=== PATIENT | male | born 1950 | race Caucasian/White ===

== ENCOUNTER → 2016-05-15 | Outpatient (CLI) | payer MEDICARE, OTHER ==
[~2016-05-15] MED LIST: PRISTIQ50 MG PO; RAMIPRIL5 MG PO; ZOLPIDEM TART10 MG PO
== END ==
LOC: LAB 07:59
DX: G47.30 Sleep apnea, unspecified (principal); G47.33 Obstructive sleep apnea (adult) (pediatric); Z98.890 Other specified postprocedural states; Z00.00 Encounter for general adult medical examination without abnormal findings; E78.4 Other hyperlipidemia; Z12.5 Encounter for screening for malignant neoplasm of prostate

== ENCOUNTER 2016-05-29 10:53 | Emergency (ER) | payer MEDICARE, OTHER | END 2016-05-29 11:34 | disposition home or self-care (01) | LOC: ED 10:53 | DX: S61.411A Laceration without foreign body of right hand, initial encounter (principal); W31.89XA Contact with other specified machinery, initial encounter; Y92.018 Other place in single-family (private) house as the place of occurrence of the external cause | CPT/HCPCS: 90715; A4550 ==

== ENCOUNTER → 2017-09-17 | Outpatient (CLI) | payer MEDICARE, OTHER ==
[2016-05-29 11:47] VITALS: BP 151/96
[2017-09-17 08:36] LABS: HEMOGLOBIN 15.6 g/dL (13.5-18.0); MEAN PLATELET VOLUME 9.1 fl (7.4-10.4); RED BLOOD COUNT 4.88 M/mm3 (4.20-5.60); WHITE BLOOD COUNT 6.7 K/mm3 (4.8-10.8)
[2017-09-17 08:54] LABS: ALBUMIN 3.8 g/dL (3.5-5.0); BUN/CREATININE RATIO 20.5 (6.0-26.0); CALCIUM 9.2 mg/dL (8.4-10.2); POTASSIUM 4.8 mmol/L (3.6-5.0); TOTAL BILIRUBIN 0.7 mg/dL (0.2-1.3)
== END ==
LOC: LAB 07:55
PROVIDERS: Emergency Medicine
DX: Z12.5 Encounter for screening for malignant neoplasm of prostate (principal); R53.83 Other fatigue

== ENCOUNTER → 2019-01-23 | Outpatient (CLI) | payer MEDICARE, OTHER ==
[2016-05-29 11:47] VITALS: BP 151/96
[2019-01-23 08:52] LABS: BASO # 0.1 (0.02-0.10); EOS # 0.5 (0.04-0.40); HEMATOCRIT 44.3 % (42.0-52.0); HEMOGLOBIN 15.3 g/dL (13.5-18.0); MEAN CELL VOLUME 91 fl (78-100); MEAN CORPUSCULAR HEMOGLOBIN 31 pg (27-31); MEAN CORPUSCULAR HGB CONC 35 g/dL (33-37); MEAN PLATELET VOLUME 8.4 fl (7.4-10.4); MONO # 0.8 (0.20-0.80); NEU # 4.2 (1.40-6.50); PLATELET COUNT 265 K/mm3 (130-400); RED BLOOD COUNT 4.87 M/mm3 (4.20-5.60); RED CELL DISTRIBUTION WIDTH 13.8 % (11.5-14.5); WHITE BLOOD COUNT 7.6 K/mm3 (4.8-10.8)
[2019-01-23 09:15] LABS: EOS % 6.1 % (0.0-4.0)
[2019-01-23 09:23] LABS: ALBUMIN 3.8 g/dL (3.4-4.8); POTASSIUM 4.2 mmol/L (3.5-5.1)
[2019-01-23 09:24] LABS: CALCIUM 9.3 mg/dL (8.3-10.5)
[2019-01-23 09:26] LABS: TOTAL PROTEIN 7.1 g/dL (6.2-8.1)
[2019-01-23 09:27] LABS: TOTAL BILIRUBIN 0.6 mg/dL (0.2-1.2)
== END ==
LOC: LAB 08:38
PROVIDERS: Emergency Medicine
DX: Z12.5 Encounter for screening for malignant neoplasm of prostate (principal); G47.30 Sleep apnea, unspecified; I10 Essential (primary) hypertension; E66.3 Overweight; Z99.89 Dependence on other enabling machines and devices

== ENCOUNTER → 2020-08-21 | Outpatient (CLI) | payer MEDICARE, OTHER ==
[2016-05-29 11:47] VITALS: BP 151/96
[2020-08-21 13:58] LABS: ALBUMIN 3.5 g/dL (3.4-4.8); POTASSIUM 4.4 mmol/L (3.5-5.1)
[2020-08-21 13:59] LABS: CALCIUM 8.7 mg/dL (8.3-10.5)
[2020-08-21 14:00] LABS: TOTAL PROTEIN 6.5 g/dL (6.2-8.1)
[2020-08-21 14:02] LABS: TOTAL BILIRUBIN 0.4 mg/dL (0.2-1.2)
== END ==
LOC: LAB 13:26
PROVIDERS: Emergency Medicine
DX: Z12.5 Encounter for screening for malignant neoplasm of prostate (principal); I10 Essential (primary) hypertension; E11.9 Type 2 diabetes mellitus without complications; E66.3 Overweight; G47.33 Obstructive sleep apnea (adult) (pediatric)

== ENCOUNTER → 2020-10-14 | Outpatient (CLI) | payer MEDICARE, OTHER ==
[2020-10-14 14:46] LABS: BASO # 0.05 (0.02-0.10); EOS # 0.25 (0.04-0.40); EOS % 3.1 % (0.0-4.0); HEMATOCRIT 49.6 % (42.0-52.0); HEMOGLOBIN 16.8 g/dL (13.5-18.0); LYMPH# 2.06 (1.50-4.00); MEAN CELL VOLUME 95 fl (78-100); MEAN CORPUSCULAR HEMOGLOBIN 32 pg (27-31); MEAN CORPUSCULAR HGB CONC 34 g/dL (33-37); MEAN PLATELET VOLUME 8.5 fl (7.4-10.4); NEU # 4.82 (1.40-6.50); PLATELET COUNT 267 K/mm3 (130-400); RED BLOOD COUNT 5.24 M/mm3 (4.20-5.60); RED CELL DISTRIBUTION WIDTH 13.3 % (11.5-14.5); WHITE BLOOD COUNT 8.1 K/mm3 (4.8-10.8)
== END ==
LOC: LAB 14:30
PROVIDERS: Internal Medicine
DX: K59.09 Other constipation (principal)

== ENCOUNTER → 2020-10-24 | Day surgery (SDC) | payer MEDICARE, OTHER | END | disposition home or self-care (01) | LOC: MSO 08:25 | DX: K63.5 Polyp of colon (principal); K57.30 Diverticulosis of large intestine without perforation or abscess without bleeding; I10 Essential (primary) hypertension; G47.33 Obstructive sleep apnea (adult) (pediatric); E11.9 Type 2 diabetes mellitus without complications; K59.09 Other constipation; E66.9 Obesity, unspecified; Z87.891 Personal history of nicotine dependence; Z79.899 Other long term (current) drug therapy | CPT/HCPCS: 00811; J2704; J7120 ==

== ENCOUNTER → 2020-10-24 | Outpatient (CLI) | payer MEDICARE, OTHER ==
[2020-10-24 23:13] LABS: CORTISOL RANDOM 12 ug/dL (3-20); FOLLICLE STIMULATING HORMONE 8.6 mIU/mL (1.0-12.0); LUTENIZING HORMONE 3.1 mIU/mL (0.6-12.1); PROLACTIN AMS 7.9 ng/mL (3.5-19.4); T3 FREE 2.9 pg/mL (1.7-3.7); TESTOSTERONE 460 ng/dL (221-716)
[2020-10-26 00:19] LABS: ADRENOCORTICOTROPIC HORMONE 13 pg/mL (5-27)
== END ==
LOC: LAB 08:29
PROVIDERS: Internal Medicine
DX: R79.89 Other specified abnormal findings of blood chemistry (principal); K59.09 Other constipation; E23.0 Hypopituitarism

== ENCOUNTER → 2020-10-31 | Outpatient (CLI) | payer MEDICARE, OTHER | LOC: LAB 15:27 | DX: Z20.822 Contact with and (suspected) exposure to COVID-19 (principal) ==

== ENCOUNTER → 2021-06-09 | Outpatient (CLI) | payer MEDICARE, OTHER | LOC: RAD 15:56 | DX: M19.071 Primary osteoarthritis, right ankle and foot (principal) ==

== ENCOUNTER → 2021-07-31 | Outpatient (CLI) | payer MEDICARE, OTHER | LOC: RAD 14:35 | DX: M19.012 Primary osteoarthritis, left shoulder (principal); M75.32 Calcific tendinitis of left shoulder; I10 Essential (primary) hypertension ==

== ENCOUNTER → 2021-08-11 | Outpatient (CLI) | payer MEDICARE, OTHER | LOC: RAD 16:26 | DX: M65.871 Other synovitis and tenosynovitis, right ankle and foot (principal); S86.311A Strain of muscle(s) and tendon(s) of peroneal muscle group at lower leg level, right leg, initial encounter; X58.XXXA Exposure to other specified factors, initial encounter ==

== ENCOUNTER → 2021-08-25 | Outpatient (CLI) | payer MEDICARE, OTHER | LOC: LAB 12:40 | DX: U07.1 COVID-19 (principal) ==

== ENCOUNTER 2021-09-04 09:58 | Emergency (ER) | payer MEDICARE, OTHER ==
[~2021-09-04] VITALS: Wt 146.2 kg
[2021-09-04 11:11] LABS: BASO # 0.03 K/mm3 (0.02-0.10); EOS # 0.24 K/mm3 (0.04-0.40); EOS % 3.1 % (0.0-4.0); HEMATOCRIT 48.9 % (42.0-52.0); HEMOGLOBIN 16.8 g/dL (13.5-18.0); MEAN CELL VOLUME 92 fl (78-100); MEAN CORPUSCULAR HEMOGLOBIN 32 pg (27-31); MEAN CORPUSCULAR HGB CONC 34 g/dL (33-37); MEAN PLATELET VOLUME 8.7 fl (7.4-10.4); PLATELET COUNT 286 K/mm3 (130-400); RED BLOOD COUNT 5.33 M/mm3 (4.20-5.60); RED CELL DISTRIBUTION WIDTH 13.8 % (11.5-14.5); WHITE BLOOD COUNT 7.6 K/mm3 (4.8-10.8)
[2021-09-04 11:17] LABS: POTASSIUM 4.6 mmol/L (3.5-5.1); SODIUM 135 mmol/L (136-145)
[2021-09-04 11:18] LABS: CALCIUM 9.5 mg/dL (8.3-10.5)
[2021-09-04 11:19] LABS: GLUCOSE 112 mg/dL (75-110)
[2021-09-04 11:20] LABS: TOTAL PROTEIN 7.6 g/dL (6.2-8.1)
[2021-09-04] MEDS ORDERED: CELECOXIB200 M1 PO (11:20)
[2021-09-04 11:21] LABS: CARBON DIOXIDE 22 mmol/L (23-31); TOTAL BILIRUBIN 0.5 mg/dL (0.2-1.2)
[2021-09-04] MEDS ORDERED: LOSARTAN POTAS100 MG PO (11:21)
[2021-09-04] MEDS ORDERED: TIZANIDINE HYDRO4 MG PO (11:22)
[2021-09-04 11:25] LABS: AST-SGOT 37 U/L (5-34)
[2021-09-04 11:26] LABS: ALT/SGPT 48 U/L (0-55)
[2021-09-04 11:33] LABS: TROPONIN-I < 0.030 ng/mL (<0.030)
[2021-09-04 11:35] LABS: D-DIMER 0.48 mg/L FEU (0.15-0.50)
[2021-09-04] MEDS ORDERED: PREDNISONE20 MG PO (14:00)
[2021-09-04] MEDS ORDERED: NORVASC2.5 MG PO (14:01)
[2021-09-04 14:14] VITALS: BP 167/99
== END 2021-09-04 14:16 | disposition home or self-care (01) ==
LOC: ED 09:58
PROVIDERS: Physician Assistant
DX: U07.1 COVID-19 (principal); I10 Essential (primary) hypertension; J30.2 Other seasonal allergic rhinitis; R06.00 Dyspnea, unspecified; E66.9 Obesity, unspecified; Z86.16 Personal history of COVID-19; Z28.310 Unvaccinated for COVID-19
CPT/HCPCS: J2930

== ENCOUNTER 2021-09-06 04:20 | Observation (INO) | payer MEDICARE, OTHER ==
[~2021-09-06] VITALS: Ht 177.8 cm; Wt 143.4 kg
[2021-09-06] VITALS (30 sets, daily range): BP systolic 128–223; BP diastolic 66–117
[~2021-09-06 04:20] MED LIST changes: +CELECOXIB200 M1 PO; +LOSARTAN POTAS100 MG PO; +NORVASC2.5 MG PO; +PREDNISONE20 MG PO; +TIZANIDINE HYDRO4 MG PO
[2021-09-06 09:00] LABS: POTASSIUM 4.3 mmol/L (3.5-5.1)
[2021-09-06 09:01] LABS: CALCIUM 9.4 mg/dL (8.3-10.5)
[2021-09-06 09:21] LABS: BASO # 0.02 K/mm3 (0.02-0.10); EOS # 0.11 K/mm3 (0.04-0.40); EOS % 0.8 % (0.0-4.0); HEMATOCRIT 48.2 % (42.0-52.0); HEMOGLOBIN 16.7 g/dL (13.5-18.0); LYMPH# 2.41 K/mm3 (1.50-4.00); MEAN CELL VOLUME 92 fl (78-100); MEAN CORPUSCULAR HEMOGLOBIN 32 pg (27-31); MEAN CORPUSCULAR HGB CONC 35 g/dL (33-37); MEAN PLATELET VOLUME 9.1 fl (7.4-10.4); MONO # 1.26 K/mm3 (0.20-0.80); NEU # 10.31 K/mm3 (1.40-6.50); PLATELET COUNT 301 K/mm3 (130-400); RED BLOOD COUNT 5.24 M/mm3 (4.20-5.60); RED CELL DISTRIBUTION WIDTH 13.8 % (11.5-14.5); WHITE BLOOD COUNT 14.2 K/mm3 (4.8-10.8)
[2021-09-07] VITALS (19 sets, daily range): BP systolic 124–179; BP diastolic 77–102
[2021-09-07] MEDS ORDERED: CLONIDINE HYDR0.2 MG PO (12:08)
[2021-09-07 15:28] LABS: URINE WBC 0 /hpf (0-3)
[2021-09-07 15:42] LABS: URINE APPEARANCE CLEAR; URINE BILIRUBIN NEGATIVE (NEGATIVE); URINE BLOOD NEGATIVE (NEGATIVE); URINE COLOR YELLOW; URINE GLUCOSE NEGATIVE (NEGATIVE); URINE KETONE NEGATIVE (NEGATIVE); URINE LEUKOCYTE ESTERASE NEGATIVE (NEGATIVE); URINE NITRATE NEGATIVE (NEGATIVE); URINE PROTEIN(semi-quant) NEGATIVE (NEGATIVE); URINE UROBILINOGEN NORMAL (NORMAL)
== END 2021-09-07 12:35 | disposition home or self-care (01) ==
LOC: ED 04:20 → MED/SURG 10:04 → ED 10:12 → MED/SURG 09-07 12:35
PROVIDERS: ADMIT Family Medicine
DX: I16.0 Hypertensive urgency (principal); E88.81 Metabolic syndrome and other insulin resistance; G47.33 Obstructive sleep apnea (adult) (pediatric); E66.01 Morbid (severe) obesity due to excess calories; Z86.16 Personal history of COVID-19; Z28.310 Unvaccinated for COVID-19; Z28.9 Immunization not carried out for unspecified reason
CPT/HCPCS: G0378; J0595; J1650; J7050

== ENCOUNTER → 2021-09-09 | Outpatient (CLI) | payer MEDICARE, OTHER ==
[~2021-09-09] MED LIST changes: +CLONIDINE HYDR0.2 MG PO
[2021-09-09 09:15] LABS: BASO # 0.04 K/mm3 (0.02-0.10); EOS # 0.23 K/mm3 (0.04-0.40); EOS % 2.3 % (0.0-4.0); HEMATOCRIT 48.1 % (42.0-52.0); HEMOGLOBIN 16.4 g/dL (13.5-18.0); LYMPH# 2.08 K/mm3 (1.50-4.00); MEAN CELL VOLUME 92 fl (78-100); MEAN CORPUSCULAR HEMOGLOBIN 31 pg (27-31); MEAN CORPUSCULAR HGB CONC 34 g/dL (33-37); MEAN PLATELET VOLUME 8.6 fl (7.4-10.4); MONO # 0.96 K/mm3 (0.20-0.80); NEU # 6.71 K/mm3 (1.40-6.50); PLATELET COUNT 277 K/mm3 (130-400); RED BLOOD COUNT 5.22 M/mm3 (4.20-5.60); WHITE BLOOD COUNT 10.1 K/mm3 (4.8-10.8)
[2021-09-09 09:23] LABS: ALBUMIN 3.9 g/dL (3.4-4.8)
[2021-09-09 09:24] LABS: CALCIUM 9.3 mg/dL (8.3-10.5)
[2021-09-09 09:25] LABS: TOTAL PROTEIN 7.3 g/dL (6.2-8.1)
[2021-09-09 09:27] LABS: TOTAL BILIRUBIN 0.5 mg/dL (0.2-1.2)
== END ==
LOC: LAB 08:45
PROVIDERS: Internal Medicine
DX: Z12.5 Encounter for screening for malignant neoplasm of prostate (principal); I10 Essential (primary) hypertension; E11.9 Type 2 diabetes mellitus without complications; G47.33 Obstructive sleep apnea (adult) (pediatric); U07.1 COVID-19; J02.9 Acute pharyngitis, unspecified; G47.01 Insomnia due to medical condition

== ENCOUNTER → 2021-09-10 | Outpatient (CLI) | payer MEDICARE, OTHER | LOC: VAS 07:44 → RAD 08:00 | DX: R06.00 Dyspnea, unspecified (principal) ==

== ENCOUNTER → 2023-02-22 | Outpatient (CLI) | payer MEDICARE, OTHER ==
[2023-02-22 10:48] LABS: ALBUMIN 3.8 g/dL (3.4-4.8)
[2023-02-22 10:49] LABS: CALCIUM 9.4 mg/dL (8.3-10.5)
[2023-02-22 10:50] LABS: TOTAL PROTEIN 7.3 g/dL (6.2-8.1)
[2023-02-22 10:52] LABS: TOTAL BILIRUBIN 0.4 mg/dL (0.2-1.2)
== END ==
LOC: LAB 10:30
PROVIDERS: Internal Medicine
DX: G47.33 Obstructive sleep apnea (adult) (pediatric) (principal); I10 Essential (primary) hypertension; E11.9 Type 2 diabetes mellitus without complications; G47.01 Insomnia due to medical condition; E78.2 Mixed hyperlipidemia; L30.9 Dermatitis, unspecified

== ENCOUNTER → 2023-12-10 | Outpatient (CLI) | payer MEDICARE, OTHER ==
[2023-12-10 15:24] LABS: BASO # 0.04 K/mm3 (0.02-0.10); EOS # 0.17 K/mm3 (0.04-0.40); EOS % 1.7 % (0.0-4.0); HEMATOCRIT 48.5 % (42.0-52.0); HEMOGLOBIN 16.8 g/dL (13.5-18.0); LYMPH# 2.45 K/mm3 (1.50-4.00); MEAN CELL VOLUME 95 fl (78-100); MEAN CORPUSCULAR HEMOGLOBIN 33 pg (27-31); MEAN CORPUSCULAR HGB CONC 35 g/dL (33-37); MEAN PLATELET VOLUME 8.9 fl (7.4-10.4); MONO # 1.06 K/mm3 (0.20-0.80); NEU # 6.27 K/mm3 (1.40-6.50); PLATELET COUNT 263 K/mm3 (130-400); RED BLOOD COUNT 5.09 M/mm3 (4.20-5.60); RED CELL DISTRIBUTION WIDTH 13.3 % (11.5-14.5)
[2023-12-10 15:39] LABS: MAGNESIUM 2.04 mg/dL (1.60-2.60)
[2023-12-10 15:59] LABS: URINE APPEARANCE CLEAR (CLEAR); URINE COLOR YELLOW (YELLOW)
[2023-12-10 16:01] LABS: URINE BILIRUBIN NEGATIVE (NEGATIVE); URINE BLOOD NEGATIVE (NEGATIVE); URINE GLUCOSE NEGATIVE (NEGATIVE); URINE KETONE NEGATIVE (NEGATIVE); URINE LEUKOCYTE ESTERASE TRACE (NEGATIVE); URINE NITRATE NEGATIVE (NEGATIVE); URINE PROTEIN(semi-quant) NEGATIVE (NEGATIVE); URINE WBC 0-1 /hpf (0-3)
[2023-12-10 23:21] LABS: CREATININE OTHER SOURCE 30 mg/dL (47-110)
[2023-12-13 10:47] LABS: ALBUMIN 4.1 g/dL (3.4-4.8)
[2023-12-13 10:48] LABS: CALCIUM 9.8 mg/dL (8.3-10.5)
[2023-12-13 10:49] LABS: TOTAL PROTEIN 7.6 g/dL (6.2-8.1)
[2023-12-13 10:51] LABS: TOTAL BILIRUBIN 0.5 mg/dL (0.2-1.2)
== END ==
LOC: LAB 14:58
PROVIDERS: Internal Medicine
DX: Z12.5 Encounter for screening for malignant neoplasm of prostate (principal); Z12.11 Encounter for screening for malignant neoplasm of colon; E11.9 Type 2 diabetes mellitus without complications; I10 Essential (primary) hypertension; E78.2 Mixed hyperlipidemia

== ENCOUNTER → 2024-01-06 | Outpatient (CLI) | payer MEDICARE, OTHER | LOC: LAB 13:31 | DX: Z12.5 Encounter for screening for malignant neoplasm of prostate (principal); Z12.11 Encounter for screening for malignant neoplasm of colon; E11.9 Type 2 diabetes mellitus without complications; I10 Essential (primary) hypertension; E78.2 Mixed hyperlipidemia ==

== ENCOUNTER 2024-01-21 13:05 | Emergency (ER) | payer MEDICARE, OTHER ==
[~2024-01-21] VITALS: Ht 177.8 cm; Wt 146.5 kg
[2024-01-21] MEDS ORDERED: NORVASC 10MG10 MG PO (13:17)
[2024-01-21] MEDS ORDERED: AMBIEN5 M1 PO (13:17)
[2024-01-21] MEDS ORDERED: METOPROLOL SUCC50 M1 PO (13:18)
[2024-01-21 13:37] LABS: BASO # 0.03 K/mm3 (0.02-0.10); EOS # 0.14 K/mm3 (0.04-0.40); EOS % 1.4 % (0.0-4.0); HEMATOCRIT 48.3 % (42.0-52.0); HEMOGLOBIN 16.8 g/dL (13.5-18.0); LYMPH# 2.32 K/mm3 (1.50-4.00); MEAN CELL VOLUME 96 fl (78-100); MEAN CORPUSCULAR HEMOGLOBIN 33 pg (27-31); MEAN CORPUSCULAR HGB CONC 35 g/dL (33-37); MEAN PLATELET VOLUME 8.8 fl (7.4-10.4); MONO # 1.14 K/mm3 (0.20-0.80); PLATELET COUNT 260 K/mm3 (130-400); RED BLOOD COUNT 5.06 M/mm3 (4.20-5.60); RED CELL DISTRIBUTION WIDTH 13.4 % (11.5-14.5); WHITE BLOOD COUNT 9.8 K/mm3 (4.8-10.8)
[2024-01-21 13:44] LABS: ALBUMIN 3.9 g/dL (3.4-4.8); SODIUM 140 mmol/L (136-145)
[2024-01-21 13:45] LABS: CALCIUM 8.8 mg/dL (8.3-10.5)
[2024-01-21 13:46] LABS: GLUCOSE 105 mg/dL (75-110)
[2024-01-21 13:47] LABS: TOTAL PROTEIN 7.2 g/dL (6.2-8.1)
[2024-01-21 13:48] LABS: CARBON DIOXIDE 21 mmol/L (23-31); TOTAL BILIRUBIN 0.6 mg/dL (0.2-1.2)
[2024-01-21 13:52] LABS: AST-SGOT 26 U/L (5-34)
[2024-01-21 13:53] LABS: ALT/SGPT 37 U/L (0-55)
[2024-01-21 13:54] LABS: LIPASE 50 U/L (8-78)
[2024-01-21 14:06] LABS: TROPONIN-I < 0.030 ng/mL (0.00-0.033)
[2024-01-21] MEDS ORDERED: Bumetanide 1 MG/4 ML VIAL IV ONE (14:15)
[2024-01-21 14:48] LABS: D-DIMER 0.42 mg/L FEU (0.15-0.50)
[2024-01-21 15:29] VITALS: BP 141/86
== END 2024-01-21 15:31 | disposition home or self-care (01) ==
LOC: ED 13:05
PROVIDERS: Family Medicine
DX: R06.02 Shortness of breath (principal); E66.9 Obesity, unspecified; Z68.42 Body mass index [BMI] 45.0-49.9, adult